=== PATIENT | male | born 1940 | race Caucasian/White ===

== ENCOUNTER 2020-03-21 05:40 | Day surgery (SDC) | payer MEDICARE, OTHER ==
[~2020-03-21] VITALS: Ht 160 cm; Wt 57.7 kg
[~2020-03-21 05:40] MED LIST: SODIUM CHLORIDE 0.9% 1,000 ML IV ONE; SODIUM CHLORIDE 0.9% 1,000 ML ONE
[2020-03-21 06:12] LABS: COVID AG,FIA SOURCE NASOPHARYNGEAL
[2020-03-21 06:17] LABS: BASOPHILS % (AUTO) 0.7 % (0.0-2.0); EOSINOPHILS % (AUTO) 3.1 % (1.0-6.0); HEMATOCRIT 42.9 % (41-53); LYMPHOCYTES # (AUTO) 2.1 K/uL (1.0-4.8); LYMPHOCYTES % (AUTO) 34.7 % (22.0-44.0); MEAN CORPUSCULAR HGB CONC 32.6 G/dL (31.0-37.0); MEAN CORPUSCULAR VOLUME 92 fL (80-100); MONOCYTES # (AUTO) 0.5 K/uL (0.1-1.0); MONOCYTES % (AUTO) 8.3 % (2.0-9.0); NEUTROPHILS # (AUTO) 3.2 K/uL (1.8-7.7); NEUTROPHILS % (AUTO) 53.2 % (40.0-70.0); PLATELET COUNT (AUTO) 124 K/uL (150-450); RED BLOOD CELL COUNT(AUTO) 4.66 MIL/uL (4.50-5.90); RED CELL DISTRIBUTION WIDTH 12.9 % (11.5-14.5)
[2020-03-21 06:38] LABS: CALCIUM, TOTAL 8.9 mg/dL (8.8-10.5); CREATININE 2.39 mg/dL (0.60-1.30); POTASSIUM 4.5 mmol/L (3.5-5.1)
[2020-03-21 06:45] LABS: ALBUMIN 3.9 g/dL (3.4-5.0); BILIRUBIN,TOTAL 0.6 mg/dL (0.1-1.0); TOTAL PROTEIN, SERUM 7.5 g/dL (6.4-8.2)
[2020-03-21] MEDS ORDERED: SODIUM CHLORIDE 0.9% 1,000 ML IV ONE (06:45)
[2020-03-21 06:59] LABS: PROTHROMBIN TIME 10.2 SEC (9.4-11.6)
[2020-03-21] MEDS ORDERED: CLOP75TA32 PO (07:06)
[2020-03-21] MEDS ORDERED: LOSA50TA37 PO (07:06)
[2020-03-21] MEDS ORDERED: METO-408 PO (07:06)
[2020-03-21] MEDS ORDERED: AMLO10TA55 PO (07:06)
[2020-03-21] MEDS ORDERED: AMIT50TA3 PO (07:06)
[2020-03-21] MEDS ORDERED: ZOLP-280 PO (07:06)
[2020-03-21] MEDS ORDERED: DiphenhydrAMINE HCL 25 MG CAPSULE PO ONE (07:30)
[2020-03-21] MEDS ORDERED: DIAZEPAM 5 MG TABLET PO ONE (07:30)
[2020-03-21] MEDS ORDERED: IOHEXOL 300 MG/ML 150 ML VIAL ONE (07:41)
[2020-03-21] MEDS ORDERED: HEPARIN SODIUM 1000 UNITS/NS 1,000 ML ONE (07:41)
[2020-03-21] MEDS ORDERED: SODIUM BICARBONATE 50 MEQ/50 ML VIAL ONE (07:41)
[2020-03-21] MEDS ORDERED: LIDOCAINE/PF 1% 30 ML VIAL ONE (07:41)
[2020-03-21] MEDS ORDERED: ACETYLCYSTEINE 10% 100 MG/ML 30 ML ORAL SOLUTION PO ONE (07:45)
[2020-03-21] MEDS ORDERED: IOHEXOL 300 MG/ML 50 ML VIAL ONE (08:19)
[2020-03-21] MEDS ORDERED: FentaNYL CITRATE PF 100 MCG/2 ML VIAL ONE (08:39)
[2020-03-21] MEDS ORDERED: MIDAZOLAM HCL 2 MG/2 ML VIAL ONE (08:39)
[2020-03-21] MEDS ORDERED: ROSU10TA22 PO (12:09)
[2020-03-21] MEDS ORDERED: MIDAZOLAM HCL 2 MG/2 ML VIAL IVP ONE (12:15)
[2020-03-21] MEDS ORDERED: FentaNYL CITRATE PF 100 MCG/2 ML VIAL IVP ONE (12:15)
== END 2020-03-21 10:35 | disposition home or self-care (01) ==
LOC: CATHLAB 05:40
PROVIDERS: ATTEND Internal Medicine Cardiovascular Disease
DX: R94.39 Abnormal result of other cardiovascular function study (principal); Z53.8 Procedure and treatment not carried out for other reasons; E78.00 Pure hypercholesterolemia, unspecified; I25.10 Atherosclerotic heart disease of native coronary artery without angina pectoris; I10 Essential (primary) hypertension; G47.00 Insomnia, unspecified; I69.354 Hemiplegia and hemiparesis following cerebral infarction affecting left non-dominant side; I69.321 Dysphasia following cerebral infarction; Z79.899 Other long term (current) drug therapy
CPT/HCPCS: 36415; 80053; 85025; 85610; 85730; 87426; 93005; C9803; J1644; J2250; J3010; J3490 ×2; J7030; Q9967

== ENCOUNTER 2020-04-04 05:37 | Day surgery (SDC) | payer MEDICARE, OTHER ==
[2020-04-01 13:55] LABS: COVID AG,FIA SOURCE NASOPHARYNGEAL
[2020-04-01 14:26] LABS: CALCIUM, TOTAL 8.6 mg/dL (8.8-10.5); CREATININE 2.68 mg/dL (0.60-1.30); POTASSIUM 4.6 mmol/L (3.5-5.1)
[2020-04-01 14:32] LABS: ALBUMIN 3.8 g/dL (3.4-5.0); BILIRUBIN,TOTAL 0.5 mg/dL (0.1-1.0); TOTAL PROTEIN, SERUM 7.1 g/dL (6.4-8.2)
[~2020-04-04] VITALS: Ht 160 cm; Wt 57.7 kg
[~2020-04-04 05:37] MED LIST changes: +AMIT50TA3 PO; +AMLO10TA55 PO; +CLOP75TA32 PO; +LOSA50TA37 PO; +METO-408 PO; +ROSU10TA22 PO; -SODIUM CHLORIDE 0.9% 1,000 ML ONE; +ZOLP-280 PO
[2020-04-04] MEDS ORDERED: SODIUM CHLORIDE 0.9% 1,000 ML ONE (05:40)
[2020-04-04 06:34] LABS: PROTHROMBIN TIME 10.4 SEC (9.4-11.6)
[2020-04-04] MEDS ORDERED: IOHEXOL 300 MG/ML 100 ML VIAL ONE (07:31)
[2020-04-04] MEDS ORDERED: SODIUM BICARBONATE 50 MEQ/50 ML VIAL ONE (07:31)
[2020-04-04] MEDS ORDERED: HEPARIN SODIUM 1000 UNITS/NS 1,000 ML ONE (07:31)
[2020-04-04] MEDS ORDERED: LIDOCAINE/PF 1% 30 ML VIAL ONE (07:31)
[2020-04-04] MEDS ORDERED: IOHEXOL 300 MG/ML 50 ML VIAL ONE (07:31)
[2020-04-04 07:53] VITALS: BP 146/69
[2020-04-04] MEDS ORDERED: MIDAZOLAM HCL 2 MG/2 ML VIAL ONE (08:19)
[2020-04-04] MEDS ORDERED: FentaNYL CITRATE PF 100 MCG/2 ML VIAL ONE (08:19)
[2020-04-04] MEDS ORDERED: FentaNYL CITRATE PF 100 MCG/2 ML VIAL IVP ONE (08:30)
[2020-04-04] MEDS ORDERED: HEPARIN SODIUM 1000 UNITS/NS 1,000 ML IARTER ONE (08:30)
[2020-04-04] MEDS ORDERED: IOHEXOL 300 MG/ML 100 ML VIAL IARTER ONE (08:30)
[2020-04-04] MEDS ORDERED: MIDAZOLAM HCL 2 MG/2 ML VIAL IVP ONE (08:30)
[2020-04-04] MEDS ORDERED: LIDOCAINE 1% 30 ML/SOD BICARB 8.4% 4 ML SQ ONE (08:30)
[2020-04-04] MEDS ORDERED: IOHEXOL 300 MG/ML 50 ML VIAL IARTER ONE (08:30)
[2020-04-04 08:55] VITALS: BP 146/69
[2020-04-04] MEDS ORDERED: SODIUM CHLORIDE 0.9% 1,000 ML IV ONE (09:00)
== END 2020-04-04 12:25 | disposition home or self-care (01) ==
LOC: CATHLAB 05:37
PROVIDERS: ATTEND Internal Medicine Cardiovascular Disease
DX: I25.10 Atherosclerotic heart disease of native coronary artery without angina pectoris (principal); E78.00 Pure hypercholesterolemia, unspecified; I69.354 Hemiplegia and hemiparesis following cerebral infarction affecting left non-dominant side; G47.00 Insomnia, unspecified; I50.22 Chronic systolic (congestive) heart failure; I25.5 Ischemic cardiomyopathy; N18.31 Chronic kidney disease, stage 3a; I13.0 Hypertensive heart and chronic kidney disease with heart failure and stage 1 through stage 4 chronic kidney disease, or unspecified chronic kidney disease; Z95.5 Presence of coronary angioplasty implant and graft; Z79.899 Other long term (current) drug therapy; Z98.890 Other specified postprocedural states
CPT/HCPCS: 36415 ×2; 80053; 85610; 85730; 87426; 93005; 93459; 99152; 99153; C1760; C9803; J1644; J2250; J3010; J3490 ×2; J7030; Q9967 ×2